=== PATIENT | female | born 1990 | race Caucasian/White ===

== ENCOUNTER 2016-06-26 20:58 | Emergency (ER) | payer OTHER ==
[2016-06-26] MEDS ORDERED: NORMAL SALINE 1,000 ML IV ONE (21:16)
[2016-06-26] MEDS ORDERED: ONDANSETRON HCL/PF 2 MG/ML VIAL IV ONE (21:16)
[2016-06-26] MEDS ORDERED: ONDANSETRON HCL/PF 2 MG/ML VIAL ONE (21:25)
--- NOTE | 2016-06-26 21:35 | ERNOTE ---
<Olivia Rossi - Last Filed: 06/26/16 22:05> Medical Problem HPI - Narrative Date of Service: 06/26/16 - General Chief Complaint: Nausea/Vomiting Time Seen by Provider: 06/26/16 21:08 Source: patient Exam Limitations: no limitations - Immun/Allergies/Home Medications Immunizations: IMMUNIZATION HX Immunizations Up to Date Yes History of Influenza Vaccine Yes Hx Pneumococcal Vaccination No Allergies/Adverse Reactions: Allergies No Known Allergies Allergy (Unverified 06/26/16 21:04) Home Medications: HOME MEDICATIONS Ondansetron [Zofran Odt] 4 mg PO Q4H PRN #20 tab 06/26/16 [Last Taken Unknown] Prenatl Vit6/Iron/FA/B12/Ca/D3 06/26/16 [Last Taken Unknown] - History of Present History Narrative: Pt. comes in with c/o severe nausea and vomiting for six weeks and pt. states that she has not been able to hold down any foods or fluids in 18 hours and then was able to drink and eat for a hour, then pt. started vomiting again. Pt. had hyperemesis graviderum with her previous and was given reglan and zofran with the previous . Pt. also states that today she has felt suprapubic cramping. Pt. denies any discharge or bleeding. Pt. LMP was Apr 16. Pt. has not had an ultrasound yet this . Review of Systems - Review of Systems Constitutional: Present: no symptoms reported. Absent: recent illness, fever, chills, weakness, fatigue, malaise EYE: Present: no symptoms reported ENT: Present: no symptoms reported Respiratory: Present: no symptoms reported. Absent: shortness of breath, cough , wheezing Cardiology: Present: no symptoms reported. Absent: chest pain, palpitations, edema Gastrointestinal/Abdominal: Present: nausea, vomiting, diarrhea, abdominal pain - suprapubic Genitourinary: Present: pain - suprapubic. Absent: frequency, dysuria, hematuria, decreased urinary output, discharge Musculoskeletal: Present: no symptoms reported. Absent: back pain, joint pain Skin: Present: no symptoms reported. Absent: rash, change in color Neurological: Present: no symptoms reported. Absent: headache, dizziness/light- headedness, numbness, tingling All Other Systems: All systems neg except as marked - Patient's Past Medical History Patient History - Medical: No pertinent hx Patient History - Cardiac/Respiratory: No pertinent hx Patient History - Cancer: Melanoma Patient History - Surgical Procedures: Other Patient History - Other: None LMP (females 10-50): - Social History Living Situations: home Psych History: No pertinent hx - Immunizations Immunizations Up to Date: Yes Hx Pneumococcal Vaccination: No History of Influenza Vaccine: Yes Physical Exam - Physical Exam General Appearance: Present: wd/wn, alert, no apparent distress Eye Exam: Normal inspection: bilateral, PERRL: bilateral, EOMI: bilateral Ears, Nose, Throat: Present: normal except -, normal pharynx, dry mucous membranes Neck: Present: normal inspection, nontender. Absent: lymphadenopathy (R), lymphadenopathy (L) Respiratory: Present: no respiratory distress, normal breath sounds, no accessory muscle use, chest nontender, lungs clear Cardiovascular/Chest: Present: regular rate, rhythm, no murmur, normal peripheral pulses Gastrointestinal/Abdominal: Present: normal bowel sounds, nondistended, soft, no organomegaly, tenderness - Suprapubis Back Exam: Present: normal inspection, no CVA tenderness Extremity Exam: Present: normal inspection, non-tender, normal range of motion, no edema Neurological Exam: Present: alert, oriented, normal mood/affect, no motor/ sensory deficits. 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 Absent: skin rash ED Progress - Vital Signs Patient's Vital Signs:: I have reviewed the patient's vital signs. Vital Signs: Vital Signs 06/26/16 21:01 Temperature 36.4 C L Pulse Rate 75 Respiratory 16 Rate Blood Pressure 142/95 O2 Sat by Pulse 100 Oximetry - Progress/Reassessment Chief Complaint: Nausea/Vomiting - Transfer of Care Physician Sign Out: Olivia Rossi Receiving Physician: Ewa Brunson Pending Results: X-ray results Expected Disposition: Discharge Departure - Departure Clinical Impression: Hyperemesis gravidarum before end of 22 week gestation with carbohydrate depletion Disposition: Home self-care Condition: Good Instructions: Eating Plan for Hyperemesis Gravidarum Additional Instructions: follow up with your doctor in [place] or if you are having concerns while you are still here [facility] Referrals: Sal Ingram DO [Staff Physician] - Prescriptions: Ondansetron [Zofran Odt] 4 mg PO Q4H PRN #20 tab PRN Reason: Nausea And Vomiting <Ewa Brunson - Last Filed: 06/26/16 23:35> Medical Problem HPI - Immun/Allergies/Home Medications Immunizations: IMMUNIZATION HX Immunizations Up to Date Yes History of Influenza Vaccine Yes Hx Pneumococcal Vaccination No ED Progress - Results and Orders Patient's Lab Results:: I have reviewed the patient's lab results. - Vital Signs Patient's Vital Signs:: I have reviewed the patient's vital signs. Vital Signs: Vital Signs 06/26/16 21:01 Temperature 36.4 C L Pulse Rate 75 Respiratory 16 Rate Blood Pressure 142/95 O2 Sat by Pulse 100 Oximetry - CT/Ultrasound CT/Ultrasound Narrative: U/S : single viable 9weeks, 3 days, no abnormalities - Progress/Reassessment Progress Note-Subjective: 06/26/16 23:35 patient currently not vomiting explained results
[2016-06-26 21:50] LABS: Hematocrit 38.1 % (37.0-47.0); Hemoglobin 13.1 gm/dL (12.5-16.0); Mean Cell Volume 93.4 fl (78-100); Mean Corpuscular Hemoglobin 32.1 pg (27-31); Mean Corpuscular Hgb Conc 34.4 g/dl (32-36); Mean Platelet Volume 11.2 fl (6.0-9.5); Neutrophil # 5.3 K/mm3 (1.3-6.0); Neutrophil % 60.5 % (42-75.0); Platelet Count 198 K/mm3 (150-450); Red Blood Count 4.08 M/mm3 (4.2-5.4); Red Cell Distribution Width 12.1 % (11.5-14.0); White Blood Count 8.7 K/mm3 (4.0-10.5)
[2016-06-26 21:57] LABS: Albumin * 3.5 gm/dl (3.4-5.0); Anion Gap 14.2 mmol/L (6.8-13.8); BUN/Creatinine Ratio 11.8 (9.0-21.6); Bilirubin, Total 0.2 mg/dL (0.0-1.1); Ca. Corrected For Albumin 8.5 mg/dL (8.4-10.2); Calcium * 8.4 mg/dL (7.9-10.9); Carbon Dioxide 23.4 mmol/L (24-32.6); Potassium 3.6 mmol/L (3.4-4.6); Total Protein 6.9 gm/dL (6.2-8.2)
[2016-06-26 22:48] LABS: Urine Bilirubin Negative (NEGATIVE); Urine Blood Negative /ul (NEGATIVE); Urine Ketone 5 mg/dL (NEGATIVE); Urine Nitrite Negative (NEGATIVE); Urine Protein Negative (NEGATIVE); Urine Specific Gravity 1.025 SP.GR. (1.005-1.010); Urine Urobilinogen Normal (NORMAL); Urine pH 6.5 pH (5.0-7.0)
[2016-06-26 23:01] LABS: Urine Appearance Clear; Urine Bacteria TRACE; Urine Color Yellow; Urine Mucus Few - 1+; Urine RBC None Seen /hpf (0-5); Urine WBC TRACE /hpf (0-5)
[2016-06-26] MEDS ORDERED: ONDANSETRON 4 MG TAB.RAPDIS ONE (23:36)
[2016-06-26] MEDS: ONDANSETRON 4 MG TAB.RAPDIS PO ONE (23:41)
[2016-06-26 23:48] VITALS: BP 106/59
== END 2016-06-26 23:47 | disposition home or self-care (01) ==
LOC: ER 20:58
DX: O21.1 Hyperemesis gravidarum with metabolic disturbance (principal); Z3A.09 9 weeks gestation of pregnancy; Z37.9 Outcome of delivery, unspecified; Z33.1 Pregnant state, incidental